=== PATIENT | female | born 1980 | race Caucasian/White ===

== ENCOUNTER 2017-05-31 04:10 | Inpatient (IN) | payer OTHER ==
[~2017-05-31] VITALS: Ht 165.1 cm; Wt 72.6 kg
[~2017-05-31 04:10] MED LIST: ATABEX EC CAPL1 EACH; ZYRTEC10 M3
[2017-05-31] MEDS ORDERED: PRENATAL TABLE1 EAC2 PO (04:58)
== END 2017-06-02 13:57 | DRG 775 ==
LOC: LDR 04:10 → OB/GYN 04:10
PROC: 0KQM0ZZ Repair Perineum Muscle, Open Approach (ICD-10-PCS; principal; 2017-05-31)
PROC: 10E0XZZ Delivery of Products of Conception, External Approach (ICD-10-PCS; 2017-05-31)
PROC: 4A1HXCZ Monitoring of Products of Conception, Cardiac Rate, External Approach (ICD-10-PCS; 2017-05-31)
PROC: 4A033R1 Measurement of Arterial Saturation, Peripheral, Percutaneous Approach (ICD-10-PCS; 2017-05-31)
DX: O70.1 Second degree perineal laceration during delivery (principal); Z37.0 Single live birth; O69.81X0 Labor and delivery complicated by cord around neck, without compression, not applicable or unspecified; Z3A.38 38 weeks gestation of pregnancy

== ENCOUNTER → 2017-11-04 | Day surgery (SDC) | payer OTHER ==
[~2017-11-04] MED LIST changes: +PRENATAL TABLE1 EAC2 PO
== END | disposition home or self-care (01) ==
LOC: ADM 10-30 08:30 → CIR.AMB 08:10
DX: N90.0 Mild vulvar dysplasia (principal)

== ENCOUNTER 2019-06-21 08:48 | Emergency (ER) | payer OTHER ==
[~2019-06-21] VITALS: Ht 165.1 cm; Wt 59.0 kg
== END 2019-06-21 12:05 | disposition home or self-care (01) ==
LOC: ER 08:48
DX: R21 Rash and other nonspecific skin eruption (principal); T78.49XA Other allergy, initial encounter; X58.XXXA Exposure to other specified factors, initial encounter